=== PATIENT | male | born 1965 | race Caucasian/White ===

== ENCOUNTER 2021-08-05 10:46 | Outpatient (CLI) | payer MEDICARE, BC, SELFPAY ==
--- NOTE | ~2021-08-05 | US_ITS ---
EXAMINATION: US scrotum doppler DATE: 08/05/2021 11:39 INDICATION: Right testicular pain TECHNIQUE: Testicular sonogram utilizing grayscale and Doppler COMPARISON: None. FINDINGS: The right testis measures 3.9 x 2.9 x 1.8 cm. The left testis measures 3.9 x 3.1 x 1.7 cm. Symmetric normal grayscale appearance to both testes. Couple tiny punctate echogenic microliths in the left sharan tis which is within normal limits. There is normal vascular flow to both testes. There are anechoic e pididymal cysts, the largest at the head of the right epididymis measuring 10.6 x 1.2 x 0.9 cm and 1. 4 x 1.1 x 0.9 cm with smaller cyst at the tail of the left epididymis measuring 9 x 8 x 4 mm . The th e bilateral epididymides are otherwise normal with normal vascular flow. Mild left varicocele with hernan rderline vessel diameter measuring up to 2.3 mm but with augmented flow with Valsalva. There is no ri ght-sided varicocele. No hydrocele. IMPRESSION: 1. Bilateral epididymal cysts. Normal testes. 2. Mild left varicocele. Reviewed, dictated and finalized at location A.
== END 2021-08-05 10:47 | disposition home or self-care (01) ==
PROVIDERS: PCP Student in an Organized Health Care Education/Training Program; Visit Provider Registered Nurse
DX: N50.811 Right testicular pain (principal); N50.3 Cyst of epididymis; I86.1 Scrotal varices
CPT/HCPCS: 76870; 93976

== ENCOUNTER 2023-12-21 13:41 | Outpatient (CLI) | payer MEDICARE, BC, SELFPAY ==
--- NOTE | ~2023-12-21 | CT_ITS ---
CT abdomen pelvis w con Ordering provider: Srini Ortega, DO History: 58 years Male with . DIVERTICULITIS . Comparison: None. Technique: CT abdomen and pelvis with IV and without oral contrast. Automated exposure control and it erative reconstruction technique were employed. The dose-length product was 453.00 mGy-cm. 100 MLO Om nipaque 350 was given IV. Findings: VISUALIZED LOWER CHEST: Dependent atelectatic changes. UPPER ABDOMINAL ORGANS: Liver: Mild fat infiltration. Gallbladder: Normal. Spleen: Normal. Stomach/duodenum: Sliding hiatus hernia. Pancreas: Normal. Adrenals: Prominent both adrenal glands with focal adenoma in the right side measuring 1.6 cm. No fol low-up is advised unless clinically warranted. Kidneys: Normal. PELVIC ORGANS: The bladder is normal. BOWEL AND MESENTERY: Colon: No evidence of diverticulitis. No evidence of diverticulitis. Small Bowel: Normal. No obstruction. Peritoneum/mesentery: No free air or free fluid. No mesenteric lymphadenopathy. RETROPERITONEUM: Normal aorta. This area No retroperitoneal lymphadenopathy. Small para-aortic lymp h nodes. MUSCULOSKELETAL: Superficial soft tissues: The superficial soft tissues are normal. Bones: Postoperative changes anteriorly at the level of L5-S1. No other definite abnormality. IMPRESSION: 1. No evidence of appendicitis, diverticulitis or intestinal obstruction. 2. Sliding hiatus hernia 3. Mild fat infiltration of the liver 4. Slightly prominent adrenal glands more on the right side. Reviewed, dictated and finalized at location A.
[2023-12-21 14:16] LABS: Estimated Glomerular Filt Rate > 60
== END 2023-12-21 13:42 | disposition home or self-care (01) ==
PROVIDERS: PCP Student in an Organized Health Care Education/Training Program; Visit Provider Student in an Organized Health Care Education/Training Program
DX: K44.9 Diaphragmatic hernia without obstruction or gangrene (principal); K76.0 Fatty (change of) liver, not elsewhere classified
CPT/HCPCS: 74177; Q9967

== ENCOUNTER 2024-01-05 13:28 | Outpatient (CLI) | payer MEDICARE, BC, SELFPAY ==
--- NOTE | ~2024-01-05 | MR_ITS ---
EXAMINATION: MR ankle LT wo con DATE: 01/05/2024 14:21 INDICATION: Chronic left ankle pain. TECHNIQUE: Magnetic resonance imaging (MRI) of the left ankle was performed without intravenous contr ast. Sequences included sagittal PD-weighted FS FSE, sagittal PD-weighted FSE, coronal PD-weighted FS FSE, coronal PD-weighted FSE, axial PD-weighted FS FSE, and axial PD-weighted FSE. COMPARISON: None. FINDINGS: Medial ankle ligaments: There are changes of prior sprain of the deltoid ligament characterized by thickening and increased s ignal in the superficial component. The deep component is normal. Lateral ankle ligaments: There are changes of prior lateral ankle sprain characterized by thickening and increased signal invo lving the anterior tibial fibular ligament, calcaneofibular ligament, and anterior tibiofibular ligam ent. Posterior talofibular ligament and posterior tibiofibular ligament are intact. Tendons: The medial and anterior ankle tendons are normal. Achilles tendon is normal. There is mild peroneus l ongus tendinopathy. Peroneus brevis tendon is normal. Plantar fascia: There is thickening of the central band of the plantar fascia, consistent with fasciitis. Bones/other: Bone alignment is normal. No fracture. Talar dome is normal. Fluid: There is no joint effusion. IMPRESSION: 1. Changes of prior medial and lateral ankle sprains. 2. Mild peroneus longus tendinopathy. 3. Mild plantar fasciitis. Reviewed, dictated and finalized at location A.
--- NOTE | ~2024-01-05 | MR_ITS ---
EXAMINATION: MR shoulder RT wo con DATE: 01/05/2024 14:35 INDICATION: Chronic right shoulder pain TECHNIQUE: Magnetic resonance imaging (MRI) of the right shoulder was performed without intravenous c ontrast. Sequences included axial PD-weighted FS FSE, coronal oblique PD-weighted FS FSE, coronal obl ique T2-weighted FS FSE, sagittal PD-weighted FS FSE, and sagittal T1-weighted SE. COMPARISON: 04/22/2012 FINDINGS: Coracoacromial arch: The acromion undersurface is flat in morphology (type I). The coracoacromial ligament is normal. Mini mal acromioclavicular osteoarthritis. Rotator cuff: The supraspinatus, infraspinatus and teres minor tendons are normal. Mild subscapularis tendinopathy without tear. There is mild fatty atrophy and diffuse mild increased muscle signal throughout the inf raspinatus muscle belly and involving a small portion of the posterior supraspinatus muscle belly. Th ere is also mild fatty atrophy of the teres minor muscle belly but without increased fluid signal. Biceps tendon, glenoid labrum and glenohumeral cartilage: Long head of the biceps tendon is normal. No significant change in a small tear at the 11:00-12:00 po sition of the posterosuperior glenoid labrum. Glenohumeral cartilage is normal. Fluid: Physiologic amount of fluid in the glenohumeral joint and biceps tendon sheath. No loose osteochondr al bodies. Abnormal increased fluid in the subacromial/subdeltoid bursa consistent to suggest bursiti s. There is a small tingling cyst along the cephalad margin of the acromioclavicular joint. Bones/other: Normal marrow signal with no edema, fracture or abnormal marrow replacing process. No evident ganglio n cyst, mass or other impinging lesion along the course of the suprascapular or axillary nerves. IMPRESSION: 1. Mild subscapularis tendinopathy without tear. 2. Unchanged small SLAP tear at the posterosuperior glenoid labrum. 3. Mild fatty atrophy of the infraspinatus, teres minor and posterior most supraspinatus muscle joan es with corresponding mild increased fluid signal in the infraspinatus and affected portion of the po sterior supraspinatus muscle belly. This is suspicious for acute on chronic innervation changes altho ugh no evident impinging lesions seen along the suprascapular nerve would consider and more centrally etiology. Reviewed, dictated and finalized at location A. IMPRESSION: 1. Mild subscapularis tendinopathy without tear. 2. Unchanged small SLAP tear at the posterosuperior glenoid labrum. 3. Mild fatty atrophy of the infraspinatus, teres minor and posterior most supr aspinatus muscle bellies with corresponding mild increased fluid signal in the infraspinatus and affected portion of the posterior supraspinatus muscle belly. This is suspicious for acute on chronic innervation changes although no eviden t impinging lesions seen along the suprascapular nerve would consider and more centrally etiology.
== END 2024-01-05 13:29 ==
LOC: MICIMG 13:30
PROVIDERS: PCP Student in an Organized Health Care Education/Training Program; Visit Provider Student in an Organized Health Care Education/Training Program
DX: M72.2 Plantar fascial fibromatosis (principal); M75.101 Unspecified rotator cuff tear or rupture of right shoulder, not specified as traumatic
CPT/HCPCS: 73221; 73721

== ENCOUNTER 2024-03-09 08:12 | Outpatient (CLI) | payer MEDICARE, BC, SELFPAY ==
--- NOTE | ~2024-03-09 | MR_ITS ---
EXAMINATION: MR knee RT wo con DATE: 03/09/2024 09:21 INDICATION: Chronic right knee pain TECHNIQUE: Magnetic resonance imaging (MRI) of the right knee was performed without intravenous contr ast. Sequences included coronal PD-weighted FSE, coronal PD-weighted FS FSE, sagittal T2-weighted FS E, sagittal PD-weighted FS FSE and axial PD weighted fat saturated FSE. COMPARISON: None. FINDINGS: Medial compartment: The medial meniscal body is small suggesting sequela of prior partial meniscectomy. There is a comple x tear at the posterior horn with longitudinal horizontal tear plane extending to the superior articu lar surface of the posterior horn and with a small meniscal flap at the lateral aspect of the posteri or horn arising from tissue cephalad to the horizontal tear plane. Likely additional longitudinal hor izontal tear plane involving the small amount of remaining meniscal tissue at the body. There is part ial thickness chondral ulceration with chondral surface regularity along the anterior to central weig htbearing medial femoral condyle with irregularity and tiny focus of subarticular edema-like signal c hange at the lateral aspect of the anterior weightbearing medial femoral condyle. Additional partial- thickness chondral ulceration with chondral surface irregularity along the medial tibial plateau with deeper ulceration with small focus of subarticular edema-like signal change along the medial rim. Lateral compartment: Lateral meniscus is normal. Articular cartilage is normal. Patellofemoral compartment: Partial-thickness chondral fissuring without degenerative subchondral changes at the central to media l aspect of the lateral patellar facet. Trochlear cartilage is normal. Ligaments and tendons: Anterior and posterior cruciate ligaments are normal. The medial collateral ligament and fibular laney ateral ligament complex are normal. Patellar tendon is normal. Small enthesophytes and mild tendinopa thy without tear at the patellar insertion of the distal quadriceps tendon. The visualized medial and lateral hamstring tendons as well as the iliotibial band are normal. Fluid: Physiologic amount of fluid in the joint space. No loose osteochondral bodies identified. Osseous/other: Subtly mild degenerative subchondral changes are normal marrow signal throughout. No fracture or path ologic marrow replacing process. IMPRESSION: 1. Complex tear of the posterior horn and likely extending into the small body of the medial meniscus with the loss of meniscal tissue likely related to prior partial meniscectomy given the history of p rior surgery. 2. 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 3. Chronic distal quadriceps enthesopathy. Reviewed, dictated and finalized at location A. IMPRESSION: 1. Complex tear of the posterior horn and likely extending into the small body of the medial meniscus with the loss of meniscal tissue likely related to prior partial meniscectomy given the history of prior surgery. 2. 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 3. Chronic distal quadriceps enthesopathy.
== END 2024-03-09 08:13 | disposition home or self-care (01) ==
LOC: MICIMG 08:13
PROVIDERS: PCP Student in an Organized Health Care Education/Training Program; Visit Provider Student in an Organized Health Care Education/Training Program
DX: S83.231A Complex tear of medial meniscus, current injury, right knee, initial encounter (principal); X58.XXXA Exposure to other specified factors, initial encounter; M17.11 Unilateral primary osteoarthritis, right knee; M94.29 Chondromalacia, multiple sites; M76.891 Other specified enthesopathies of right lower limb, excluding foot
CPT/HCPCS: 73721